=== PATIENT | female | born 1950 | race Caucasian/White ===

== ENCOUNTER 2017-07-07 19:42 | Emergency (ER) | payer OTHER ==
[2017-07-07 19:53] VITALS: BP 157/80; PULSE 82; TEMP 97.9; BMI 29.2
--- NOTE | 2017-07-07 20:56 | PDOC ---
History of Present Illness - General History Source: Patient Exam Limitations: No Limitations - History of Present Illness Initial Comments: 07/07/17 21:02 The patient is a 67 year old female with a significant PMH of chronic kidney disease (on peritoneal dialysis), anemia, hypertension, IDDM who presents to the emergency department with complaints of broken dialysis attachment earlier today. Patient reports the site where she receives dialysis treatment fell off and she is unable to put it back in. She states this occurred 20 minutes prior to arriving in the ED. Patient states that she usually receives nightly dialysis and claims that this has never happened before. The patient denies chest pain, shortness of breath, headache and dizziness. Denies fever, chills, nausea, vomit, diarrhea and constipation. Denies dysuria, frequency, urgency and hematuria. Nephrology: Sofia Curran <Rosangela Monroy - Last Filed: 07/07/17 21:02> <Phoebe Hernández - Last Filed: 07/07/17 23:02> - General Chief Complaint: Dialysis Shunt Problem Stated Complaint: ABD ISSUE Time Seen by Provider: 07/07/17 20:05 Past History <Rosangela Monroy - Last Filed: 07/07/17 21:02> - Past Medical History Anemia: Yes COPD: No Diabetes: Yes Dialysis: Yes HTN: Yes Hypercholesterolemia: Yes - Suicide/Smoking/Psychosocial Hx Smoking History: Never smoked Have you smoked in the past 12 months: No Hx Alcohol Use: No Drug/Substance Use Hx: No Substance Use Type: None Hx Substance Use Treatment: No <Phoebe Hernández - Last Filed: 07/07/17 23:02> - Past Medical History Allergies/Adverse Reactions: Allergies Allergy/AdvReac Type Severity Reaction Status Date / Time No Known Allergies Allergy Verified 07/07/17 19:48 Home Medications: Ambulatory Orders Acetaminophen [Tylenol] 650 mg PO DAILY PRN 09/11/14 Ferrous Sulfate [Feosol] 325 mg PO TID 09/11/14 Insulin (Levemir) [Levemir Flexpen -] 10 units SQ HS 09/11/14 Nifedipine ER [Procardia XL -] 30 mg PO BID@0800,2000 #30 [email or web address] 09/16/14 Review of Systems - Review of Systems Able to Perform ROS?: Yes Comments:: 07/07/17 21:03 GENERAL: Well developed, well nourished. Awake and alert. No acute distress. HEENT: Normocephalic, atraumatic. PERRLA, EOMI. No conjunctival pallor. Sclera are non- icteric. Moist mucous membranes. Oropharynx is clear. NECK: Supple. Full ROM. No JVD. Carotid pulses 2+ and symmetric, without bruits. No thyromegaly. No lymphadenopathy. CARDIOVASCULAR: Regular rate and rhythm. No murmurs, rubs, or gallops. Distal pulses are 2+ and symmetric. PULMONARY: No evidence of respiratory distress. Lungs clear to auscultation bilaterally. No wheezing, rales or rhonchi. ABDOMINAL: Soft. Non-tender. Non-distended. No rebound or guarding. No organomegaly. Normoactive bowel sounds. MUSCULOSKELETAL Normal range of motion at all joints. No bony deformities or tenderness. No CVA tenderness. EXTREMITIES: No cyanosis. No clubbing. No edema. No calf tenderness. SKIN: in the right lower quadrant her is an attachment for peritoneal dialysis. The site where that tubing attaches is misplaced. The surrounding skin is warm and dry, there is no drainage, no blood, no erythema . Normal capillary refill. No rashes. No jaundice. NEUROLOGICAL: Alert, awake, appropriate. Cranial nerves 2-12 intact. No deficits to light touch and temperature in face, upper extremities and lower extremities. No motor deficits in the in face, upper extremities and lower extremities. Normoreflexic in the upper and lower extremities. Normal speech. Toes are down- going bilaterally. Gait is normal without ataxia. PSYCHIATRIC: Cooperative. Good eye contact. Appropriate mood and affect. <Rosangela Monroy - Last Filed: 07/07/17 21:02> *Physical Exam - Vital Signs Last Vital Signs Temp Pulse Resp BP Pulse Ox 97.9 F 82 18 157/80 100 07/07/17 19:48 07/07/17 19:48 07/07/17 19:48 07/07/17 19:48 07/07/17 19:48 - Physical Exam Comments: 07/07/17 21:05 CONSTITUTIONAL: +broken dialysis attachment Absent: fever, chills, diaphoresis, generalized weakness, malaise, loss of appetite HEENT: Absent: rhinorrhea, nasal congestion, throat pain, throat swelling, difficulty swallowing, mouth swelling, ear pain, eye pain, visual Changes CARDIOVASCULAR: Absent: chest pain, syncope, palpitations, irregular heart rate, lightheadedness , peripheral edema RESPIRATORY: Absent: cough, shortness of breath, dyspnea with exertion, orthopnea, wheezing, stridor, hemoptysis GASTROINTESTINAL: Absent: abdominal pain, abdominal distension, nausea, vomiting, diarrhea, constipation, melena, hematochezia GENITOURINARY: Absent: dysuria, frequency, urgency, hesitancy, hematuria, flank pain, genital pain MUSCULOSKELETAL: Absent: myalgia, arthralgia, joint swelling SKIN: Absent: rash, itching, pallor HEMATOLOGIC/IMMUNOLOGIC: Absent: easy bleeding, easy bruising, lymphadenopathy, frequent infections ENDOCRINE: Absent: unexplained weight gain, unexplained weight loss, heat intolerance, cold intolerance NEUROLOGIC: Absent: headache, focal weakness or paresthesias, dizziness, unsteady gait, seizure, mental status changes, bladder or bowel incontinence PSYCHIATRIC: Absent: anxiety, depression, suicidal or homicidal ideation, hallucinations. <Rosangela Monroy - Last Filed: 07/07/17 21:02> - Vital Signs Last Vital Signs Temp Pulse Resp BP Pulse Ox 97.9 F 82 18 157/80 100 07/07/17 19:48 07/07/17 19:48 07/07/17 19:48 07/07/17 19:48 07/07/17 19:48 <Phoebe Hernández - Last Filed: 07/07/17 23:02> Medical Decision Making - Medical Decision Making 07/07/17 21:[address] Wiggins, hearing care practitioner for Sofia Khan at 8:20pm Case discused with Sofia Garcia at 8:52pm Case discussed with at 9:01pm <Rosangela Monroy - Last Filed: 07/07/17 21:02> - Medical Decision Making 07/07/17 21:39 67-year-old woman who is presenting on dialysis at home. Presents because the end of her catheter. The To the tubing broke just prior to arrival. Patient is not short of breath and has no Rales, or wheezing, she does not have a fever, she has no significant pitting edema and no complaints of chest pain or exertional dyspnea. I did speak to her individual small group instructor, Dr. Sofia Aquino and he felt that if she receives antibiotics that she go home and tomorrow morning can be seen in Dr. Kidd's office or go directly to her dialysis center where they would be able to place her new connecter <Phoebe Hernández - Last Filed: 07/07/17 23:02> *DC/Admit/Observation/Transfer - Attestations Scribe Attestion: 07/07/17 21:12 Documentation prepared by Rosangela Monroy, acting as medical field representative for Phoebe Hernández MD <Rosangela Monroy - Last Filed: 07/07/17 21:02> <Phoebe Hernández - Last Filed: 07/07/17 23:02> Diagnosis at time of Disposition: Peritoneal dialysis catheter, fitting and adjustment Chronic renal disease Qualifiers: Chronic kidney disease stage: on chronic dialysis Qualified Code(s): N18.6 - End stage renal disease - Discharge Dispostion Disposition: HOME Condition at time of disposition: Stable - Referrals Referrals: Malick Wood MD [Primary Care Provider] - - Patient Instructions Printed Discharge Instructions: Peritoneal Dialysis Additional Instructions: PLEASE CALL DR SOFIA AQUINO IN THE MORNING AND ARRANGE TO HAVE YOUR CONNECTOR PLACED OR ---YOU CAN GO TO YOUR DIALYSIS CENTER AND HAVE THEM PLACE IT - Post Discharge Activity
[2017-07-07] MEDS ORDERED: VANCOMYCIN 1,000 MG in DEXTROSE 5%-WATER - 250 ML IVPB STA (21:32)
[2017-07-07] MEDS ORDERED: VANCOMYCIN 1 GRAM (PRE-DOCKED) 1,000 MG/250 ML BAG IVPB ONE (21:43)
== END 2017-07-07 23:08 | disposition home or self-care (01) ==
LOC: JER 19:42
DX: T82.49XA Other complication of vascular dialysis catheter, initial encounter (principal); Y84.1 Kidney dialysis as the cause of abnormal reaction of the patient, or of later complication, without mention of misadventure at the time of the procedure; Y73.8 Miscellaneous gastroenterology and urology devices associated with adverse incidents, not elsewhere classified; I12.0 Hypertensive chronic kidney disease with stage 5 chronic kidney disease or end stage renal disease; E11.22 Type 2 diabetes mellitus with diabetic chronic kidney disease; N18.6 End stage renal disease; N17.8 Other acute kidney failure; Z99.2 Dependence on renal dialysis; Z79.4 Long term (current) use of insulin; D64.9 Anemia, unspecified
CPT/HCPCS: 96365; 99281-25

== ENCOUNTER 2024-01-29 11:42 | Emergency (ER) | payer OTHER ==
[2024-01-29 11:50] VITALS: BP 141/62; PULSE 59; RESP 18; TEMP 97.9; BMI 23.3
== END 2024-01-29 13:32 | disposition home or self-care (01) ==
LOC: JER 11:42
DX: R05.9 Cough, unspecified (principal); R09.81 Nasal congestion; Z20.822 Contact with and (suspected) exposure to COVID-19
CPT/HCPCS: 0241U-QW; 99283-25